=== PATIENT | female | born 1985 | race Caucasian/White ===

== ENCOUNTER 2016-06-26 19:48 | Emergency (ER) | payer MEDICAID ==
[2016-06-26 20:02] VITALS: BP 137/100
[2016-06-26] MEDS ORDERED: LIDOCAINE HCL 20 ML VIAL ONE (20:48)
--- NOTE | 2016-06-26 21:27 | ERNOTE ---
Upper Extremity HPI - General Extremities Pain Location: hand: left Time Seen by Provider: 06/26/16 20:49 Source: patient Exam Limitations: no limitations - Immun/Allergies/Home Medications Immunizations: IMMUNIZATION HX Immunizations Up to Date Yes History of Influenza Vaccine No Hx Pneumococcal Vaccination No Allergies/Adverse Reactions: Allergies Allergy/AdvReac Type Severity Reaction Status Date / Time codeine AdvReac Verified 09/08/15 11:48 Home Medications: HOME MEDICATIONS Ranitidine HCl [Zantac] 15 mg PO DAILY 06/23/14 [Last Taken Unknown] Sertraline HCl [Zoloft] 25 mg PO DAILY 06/23/14 [Last Taken Unknown] traZODone HCL [Desyrel] 50 mg PO HS #30 tablet 06/28/14 [Last Taken Unknown] Ondansetron [Zofran Odt] 4 mg PO Q4H PRN #10 tab 09/08/15 [Last Taken Unknown] oxyCODONE HCL/ACETAMINOPHEN [Percocet 5-325 mg Tablet] 1 each PO Q4H PRN #30 tablet 09/08/15 [Last Taken Unknown] Ibuprofen [Motrin] 800 mg PO QID PRN #30 tablet 06/26/16 [Last Taken Unknown] - History of Present Illness Narrative: Patient tripped and fell into a window that scattered and sustained a laceration on her left hand, denies any other injuries Date (Duration): 06/26/16 Time (Timing): 19:00 Review of Systems - Review of Systems Constitutional: Absent: recent illness, fever ENT: Absent: throat swelling Respiratory: Absent: shortness of breath, other Gastrointestinal/Abdominal: Absent: nausea, vomiting Skin: Present: See HPI - Patient's Past Medical History Patient History - Medical: Anemia, Anxiety, GERD, Other Patient History - Cardiac/Respiratory: No pertinent hx Patient History - Cancer: No Hx of Cancer Patient History - Surgical Procedures: , Tubal Ligation Patient History - Other: None - Family History Mother Family History - Medical: No pertinent hx - Social History Living Situations: home Abuse History: No History of abuse Psych History: Hx of Anxiety Smoking Status: Current every day smoker Have you smoked in the past 12 months: Yes Alcohol Use: occasionally Drug Use: none - Immunizations Immunizations Up to Date: Yes Hx Pneumococcal Vaccination: No History of Influenza Vaccine: No Physical Exam - Physical Exam General Appearance: Present: wd/wn, alert, no apparent distress, anxious Respiratory: Present: no respiratory distress, normal breath sounds, no accessory muscle use, lungs clear Cardiovascular/Chest: Present: regular rate, rhythm, no murmur Extremity Exam: Present: normal except -, other - left hand on dorsum proximal to fifth knuckle 4cm lac Neurological Exam: Present: alert, oriented, normal mood/affect Skin Exam: Present: normal color, warm/dry ED Progress - Vital Signs Patient's Vital Signs:: I have reviewed the patient's vital signs. Vital Signs: Vital Signs 06/26/16 19:57 Temperature 36.7 C Pulse Rate 111 H Respiratory 16 Rate Blood Pressure 137/100 O2 Sat by Pulse 98 Oximetry - X-Ray X-Ray #1 X-Ray: hand - no bony injury, no foreign body Interpretation: Interp. by me - Progress/Reassessment Chief Complaint: Laceration Progress Note-Subjective: 06/26/16 21:[address] Newman, will see patient in clinic on Tuesday, primary closure today Procedures Left Hand Anesthesia: Lidocaine w/ Epi Wound's Depth/Shape: into subcutaneous, linear Wound Explored: clean, to base, in bloodless field, no foreign body Wound Intervention: irrigated w/saline Distal NVT: neuro/vasc intact, other - unable to extend 5th finger Suture Size/Type: 4-0, prolene Number of Sutures: 5 Layer Closure: Simple Departure Clinical Impression: Laceration of hand involving extensor tendon Qualifiers: Encounter type: initial encounter Qualified Code(s): S66.329A - Laceration of extensor muscle, fascia and tendon of unspecified finger at wrist and hand level , initial encounter - Departure Disposition: Home self-care Condition: Good Instructions: Form - Excuse from Work, School, or Physical Activity, Laceration Care, Adult, [id number] Additional Instructions: call Dr Newman's office on Tuesday in the morning for a follow up appointment take ibuprofen as needed for pain keep the wound dry and clean Referrals: Franky Quesada DO [Primary Care Provider] - Reymundo Newman MD [Staff Physician] - Prescriptions: Ibuprofen [Motrin] 800 mg PO QID PRN #30 tablet PRN Reason: Pain
[2016-06-26] MEDS ORDERED: IBUPROFEN 600 MG TABLET PO ONE (21:54)
[2016-06-26] MEDS ORDERED: IBUPROFEN 600 MG TABLET ONE (22:11)
== END 2016-06-26 22:13 | disposition home or self-care (01) ==
LOC: ER 19:48
PROC: 0JQK0ZZ Repair Left Hand Subcutaneous Tissue and Fascia, Open Approach (ICD-10-PCS; principal; 2016-06-26)
DX: S66.327A Laceration of extensor muscle, fascia and tendon of left little finger at wrist and hand level, initial encounter (principal); F17.210 Nicotine dependence, cigarettes, uncomplicated; W18.02XA Striking against glass with subsequent fall, initial encounter

== ENCOUNTER 2016-06-29 09:11 | Day surgery (SDC) | payer SELFPAY ==
[~2016-06-29 09:11] MED LIST: ACETAMINOPHEN 500 MG TABLET PO PRN; HYDROmorphone HCL 2 MG/ML VIAL IV PRN; MAG HYDROX/ALUMINUM HYD/SIMETH 30 ML UDC PO PRN; MAGNESIUM HYDROXIDE 30 ML UDC PO PRN; ONDANSETRON HCL/PF 2 MG/ML VIAL IV PRN; PROMETHAZINE HCL 25 MG in DEXTROSE 5 % IN WATER 50 ML IV PRN; RINGERS SOLUTION,LACTATED 1,000 ML IV PRN; ZOLPIDEM TARTRATE 5 MG TABLET PO PRN; ceFAZolin SODIUM 1 GM VIAL IV PRN; diphenhydrAMINE HCL 50 MG/ML VIAL IV PRN; oxyCODONE HCL/ACETAMINOPHEN 1 TAB TABLET PO PRN
[2016-06-29] MEDS ORDERED: RINGERS SOLUTION,LACTATED 1,000 ML IV ONE ×2 (09:45→10:55)
[2016-06-29] MEDS ORDERED: ceFAZolin SODIUM 1 GM VIAL IV ONE ×2 (10:00→10:06)
[2016-06-29] MEDS ORDERED: HYDROmorphone HCL 2 MG/ML VIAL IV PRN (11:29)
[2016-06-29] MEDS ORDERED: ONDANSETRON HCL/PF 2 MG/ML VIAL IV PRN (11:29)
[2016-06-29] MEDS ORDERED: NALOXONE HCL 0.4 MG/ML VIAL IV PRN (11:29)
[2016-06-29] MEDS ORDERED: diphenhydrAMINE HCL 50 MG/ML VIAL IV PRN (11:29)
[2016-06-29] MEDS ORDERED: PROMETHAZINE HCL 12.5 MG in DEXTROSE 5 % IN WATER 50 ML IV PRN ×2 (11:29)
--- NOTE | 2016-06-29 11:39 | OR ---
Operative Report - Dictated Report Narrative: Date: 06/29/2016 Surgeon: Reymundo Newman M.D. Fisher Trawl Net: None Preoperative diagnosis: Left small finger extensor tendon laceration Postoperative diagnosis: Left small finger extensor tendon laceration Operation: Repair of left small finger extensor tendon laceration Anesthesia: General plus regional Tourniquet time: 66 Minutes at 250 mmHg Estimated blood loss: Minimal Specimen: None Complications: None Indications: Mervat is a 30-year-old female who sustained a laceration to the dorsum of the left hand after putting her hand through glass. She was initially treated in the ER where her wound was thoroughly irrigated and temporarily closed and dressed. She was seen in the clinic and discussed the options for treatment. She wished to proceed with surgical repair. The risks, benefits, and alternatives were discussed. Risks of , blood clots, bleeding, infection, nerve/tendon/blood vessel injury, rupture of repair, finger stiffness, extensor lag, and need for additional procedures were discussed. Consent was obtained in the clinic. Procedure: After marking the correct extremity in the preoperative holding area, the patient was taken to the operating room. A timeout was performed. Anesthesia placed a regional block followed by general anesthetic. The arm was placed on an armboard with all bony prominences well-padded on the rest of the body. IV antibiotics consisting of 2 g of Ancef were administered. A well-padded tourniquet was applied to the upper surgical arm. The arm was pre-scrubbed with chlorhexidine and prepped and draped in a standard sterile fashion. After exsanguinating the extremity and inflating the tourniquet to 250 mmHg, attention was turned to her traumatic laceration. This was a transverse laceration over the dorsum of the small finger metacarpal approximately 2-1/2 cm in length just proximal to the MCP joint. The previous nylon sutures were removed. The wound was then copiously irrigated and explored. The wound was found to be clean with no evidence of contamination or infection. Upon further inspection the extensor digiti minimi tendon was noted to be completely lacerated just proximal to the MCP joint as well as a branch from the extensor digitorum communis. The tendon ends were identified and debrided of any nonviable looking tissue. We then proceeded with repair of the tendons. 4-0 Ethibond was used in each tendon end leaving 2 core suture strands per tendon. The branch from the extensor digitorum communis was tied first followed by the extensor digiti minimi. We had good reapproximation of the tendons. We then reinforced our repair with 4-0 Ethibond epitendinous sutures. The small finger was then taken through range of motion and found to have full passive flexion and extension. With the wrist in full flexion the small finger demonstrated only slightly more passive extension than the other fingers. The wounds was again thoroughly irrigated and tourniquet was deflated. Hemostasis was obtained with direct pressure and bipolar cautery and there was no excessive bleeding. The skin was closed with interrupted 4-0 nylon. Sterile dressings consisting of Xeroform, 4 x 4, soft roll, and a well-padded ulnar gutter splint with the wrist slight extended, the MCP joint extended and the small finger PIP free, was placed. All sponge, sharp, and instrument counts were correct prior to closing the wounds. The patient was awoken and transferred to the postanesthesia care unit in stable condition.
[2016-06-29 13:13] VITALS: BP 109/95
[2016-06-29] MEDS ORDERED: SENNOSIDES/DOCUSATE SODIUM 1 TAB TABLET PO SCH (21:00)
== END 2016-06-29 09:12 | disposition home or self-care (01) ==
LOC: AMB 09:11
PROVIDERS: ATTEND Orthopaedic Surgery
PROC: 0LM80ZZ Reattachment of Left Hand Tendon, Open Approach (ICD-10-PCS; principal; 2016-06-29 09:45)
DX: S66.327A Laceration of extensor muscle, fascia and tendon of left little finger at wrist and hand level, initial encounter (principal); F17.210 Nicotine dependence, cigarettes, uncomplicated; Z68.34 Body mass index [BMI] 34.0-34.9, adult; W01.110A Fall on same level from slipping, tripping and stumbling with subsequent striking against sharp glass, initial encounter

== ENCOUNTER 2016-10-15 09:43 | Emergency (ER) | payer MEDICAID ==
[2016-10-15] MEDS ORDERED: NORMAL SALINE 1,000 ML IV ONE ×2 (09:57→11:17)
[2016-10-15] MEDS ORDERED: ONDANSETRON HCL/PF 2 MG/ML VIAL IV ONE (09:58)
[2016-10-15] MEDS ORDERED: HYDROmorphone HCL 1 MG/ML DISP.SYRIN IV ONE ×2 (09:58→11:19)
[2016-10-15] MEDS ORDERED: ONDANSETRON HCL/PF 2 MG/ML VIAL ONE (10:04)
[2016-10-15] MEDS ORDERED: HYDROmorphone HCL 1 MG/ML DISP.SYRIN ONE ×2 (10:04→11:24)
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
[2016-10-15 10:32] LABS: Hematocrit 36.7 % (37.0-47.0); Hemoglobin 12.5 gm/dL (12.5-16.0); Mean Cell Volume 85.5 fl (78-100); Mean Corpuscular Hemoglobin 29.1 pg (27-31); Mean Corpuscular Hgb Conc 34.1 g/dl (32-36); Mean Platelet Volume 8.4 fl (6.0-9.5); Neutrophil # 8.1 K/mm3 (1.3-6.0); Neutrophil % 84.9 % (42-75.0); Platelet Count 245 K/mm3 (150-450); Red Blood Count 4.29 M/mm3 (4.2-5.4); Red Cell Distribution Width 17.1 % (11.5-14.0); White Blood Count 9.6 K/mm3 (4.0-10.5)
[2016-10-15 11:05] LABS: Albumin * 3.5 gm/dl (3.4-5.0); Anion Gap 19.1 mmol/L (6.8-13.8); BUN/Creatinine Ratio 10.1 (9.0-21.6); Bilirubin, Total 1.4 mg/dL (0.0-1.1); Ca. Corrected For Albumin 8.4 mg/dL (8.4-10.2); Calcium * 8.3 mg/dL (7.9-10.9); Carbon Dioxide 19.4 mmol/L (24-32.6); Total Protein 6.5 gm/dL (6.2-8.2)
[2016-10-15 11:09] LABS: Potassium 2.5 mmol/L (3.4-4.6)
[2016-10-15 11:17] LABS: Urine Bilirubin 1 mg/dl (NEGATIVE); Urine Blood 25 /ul (NEGATIVE); Urine Ketone 50 mg/dL (NEGATIVE); Urine Protein 30 mg/dL (NEGATIVE); Urine Specific Gravity >=1.030 SP.GR. (1.005-1.010); Urine Urobilinogen Normal (NORMAL); Urine pH 5.5 pH (5.0-7.0)
[2016-10-15] MEDS ORDERED: POTASSIUM CHLORIDE 100 ML IV ONE ×2 (11:17→11:18)
[2016-10-15 11:32] LABS: Urine Appearance Cloudy; Urine Bacteria 1+; Urine Color Dark Yellow; Urine Fine Granular Cast 0-5 /LPF; Urine Mucus Few - 1+; Urine Nitrite Positive (NEGATIVE); Urine RBC 0-5 /hpf (0-5); Urine WBC 0-5 /hpf (0-5)
[2016-10-15] MEDS ORDERED: diphenhydrAMINE HCL 50 MG/ML VIAL IV ONE (13:20)
[2016-10-15] MEDS ORDERED: diphenhydrAMINE HCL 50 MG/ML VIAL ONE (13:25)
[2016-10-15 16:36] VITALS: BP 140/81
== END 2016-10-15 15:03 | disposition home or self-care (01) ==
LOC: ER 09:43
DX: K85.90 Acute pancreatitis without necrosis or infection, unspecified (principal); F17.200 Nicotine dependence, unspecified, uncomplicated
CPT/HCPCS: 36415; 74020; 74177; 80053; 81001; 82150; 83690; 84703; 85025; 87077; 87086; 87186; 96365; 96375; 99284; J2405

== ENCOUNTER 2016-11-09 14:01 | Emergency (ER) | payer MEDICAID ==
[2016-11-09 15:04] LABS: Urine Bilirubin 1 mg/dl (NEGATIVE); Urine Blood 50 /ul (NEGATIVE); Urine Ketone 5 mg/dL (NEGATIVE); Urine Nitrite Negative (NEGATIVE); Urine Protein Negative (NEGATIVE); Urine Specific Gravity >=1.030 SP.GR. (1.005-1.010); Urine Urobilinogen Normal (NORMAL); Urine pH 5.5 pH (5.0-7.0)
[2016-11-09 15:17] LABS: Urine Appearance Cloudy; Urine Bacteria TRACE; Urine Color Dark Yellow; Urine RBC None Seen /hpf (0-5); Urine WBC None Seen /hpf (0-5)
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
[2016-11-09 17:50] VITALS: BP 131/95
== END 2016-11-09 16:05 | disposition home or self-care (01) ==
LOC: ER 14:01
DX: K86.1 Other chronic pancreatitis (principal); N83.202 Unspecified ovarian cyst, left side; R31.9 Hematuria, unspecified; R91.8 Other nonspecific abnormal finding of lung field; Z87.440 Personal history of urinary (tract) infections; F41.9 Anxiety disorder, unspecified

== ENCOUNTER 2017-03-03 11:12 | Emergency (ER) | payer MEDICAID ==
[2017-03-03 11:55] VITALS: BP 98/63
[2017-03-03] MEDS ORDERED: ONDANSETRON 4 MG TAB.RAPDIS ONE (11:58)
[2017-03-03] MEDS ORDERED: ONDANSETRON 4 MG TAB.RAPDIS PO ONE (11:59)
[2017-03-03 12:20] LABS: Hematocrit 40.8 % (37.0-47.0); Hemoglobin 13.3 gm/dL (12.5-16.0); Mean Cell Volume 84.5 fl (78-100); Mean Corpuscular Hemoglobin 27.5 pg (27-31); Mean Corpuscular Hgb Conc 32.6 g/dl (32-36); Mean Platelet Volume 8.8 fl (6.0-9.5); Neutrophil # 4.2 K/mm3 (1.3-6.0); Neutrophil % 65.5 % (42-75.0); Platelet Count 478 K/mm3 (150-450); Red Blood Count 4.83 M/mm3 (4.2-5.4); Red Cell Distribution Width 19.5 % (11.5-14.0); White Blood Count 6.4 K/mm3 (4.0-10.5)
[2017-03-03 12:54] LABS: Anion Gap 14.3 mmol/L (6.8-13.8); BUN/Creatinine Ratio 12.3 (9.0-21.6); Bilirubin Direct 0.3 mg/dL (0.0-0.3); Bilirubin, Total 0.9 mg/dL (0.0-1.1); Bilirubin,Indirect 0.6 mg/dL (0.1-0.7); Calcium * 8.6 mg/dL (7.9-10.9); Carbon Dioxide 25.3 mmol/L (24-32.6); Estimated Creat Clear 84.3; Potassium 3.6 mmol/L (3.4-4.6); Total Protein 8.4 gm/dL (6.2-8.2)
== END 2017-03-03 13:37 | disposition left against medical advice (07) ==
LOC: ER 11:12
DX: Z53.21 Procedure and treatment not carried out due to patient leaving prior to being seen by health care provider (principal)